=== PATIENT | female | born 1965 | race Caucasian/White ===

== ENCOUNTER 2022-03-09 23:23 | Emergency (ER) | payer BC ==
[~2022-03-09] VITALS: Ht 160 cm; Wt 54.4 kg
[~2022-03-09 23:23] MED LIST: LEVO88TA2 PO
[2022-03-09 23:40] VITALS: BP 112/58
--- NOTE | 2022-03-09 23:49 | NUR ---
Patient left without being seen by ER Physician Dr. Patel. DO & aware
== END 2022-03-09 23:54 | disposition left against medical advice (07) ==
LOC: ER 23:24
DX: Z53.21 Procedure and treatment not carried out due to patient leaving prior to being seen by health care provider (principal)